=== PATIENT | female | born 1950 | race Caucasian/White ===

== ENCOUNTER → 2017-01-21 | Emergency (ER) | payer MEDICARE, OTHER ==
[2017-01-21 19:26] VITALS: BP 116/82; PULSE 64; TEMP 98.1; BMI 38.9
--- NOTE | 2017-01-21 19:49 | PDOC ---
History of Present Illness <Caren Diaz - Last Filed: 01/21/17 22:12> - History of Present Illness Initial Comments: 01/21/17 19:58 Patient is a 66-year-old female with past medical history of hypertension, hyperlipidemia who presents to the emergency department today complaining of right lower leg pain. Patient states her symptoms started approximately 2 weeks ago. She states that when she walks her leg starts to hurt and cramps up. She states that it feels warm to the touch. She saw her primary care Dr. Rendon yesterday who said that she should come to the emergency department for evaluation. Patient denies fevers, chills, shortness of breath, chest pain, palpitations, cough, nausea, vomiting and diarrhea. <Jenifer Bowen - Last Filed: 01/22/17 05:02> - General Chief Complaint: Pain Stated Complaint: LEG PAIN Time Seen by Provider: 01/21/17 19:40 Past History <Caren Diaz - Last Filed: 01/21/17 22:12> - Travel Traveled outside of the country in the last 30 days: No Close contact w/someone who was outside of country & ill: No - Past Medical History Disorders: No HTN: Yes Hypercholesterolemia: Yes Thyroid Disease: No - Surgical History Abdominal Surgery: Yes (tubal ligation) Orthopedic Surgery: Yes (RIGHT SHOULDER ARTHROSCOPY) - Immunization History Immunization Up to Date: Yes - Psycho/Social/Smoking Cessation Hx Anxiety: No Suicidal Ideation: No Smoking History: Never smoked Have you smoked in the past 12 months: No Information on smoking cessation initiated: No Hx Alcohol Use: No Drug/Substance Use Hx: No Substance Use Type: Alcohol Hx Substance Use Treatment: No <Jenifer Bowen - Last Filed: 01/22/17 05:02> - Past Medical History Allergies/Adverse Reactions: Allergies Allergy/AdvReac Type Severity Reaction Status Date / Time tetanus and diphtheria Allergy Mild Hives Verified 01/21/17 19:23 toxoids [tetanus & diphtheria toxoids] Home Medications: Ambulatory Orders Carvedilol 3.125 mg PO BID 09/14/14 Pantoprazole Sodium [Protonix] 40 mg PO DAILY 09/14/14 Atorvastatin Ca [Lipitor] 20 mg PO HS 11/13/14 Olmesartan/Hydrochlorothiazide [Benicar Hct 20-12.5 mg Tablet] 1 each PO DAILY 04/03/15 Aspirin [ASA -] 81 mg PO DAILY 11/03/15 Cyclobenzaprine HCl [Flexeril -] 10 mg PO TID PRN #15 tablet 11/03/15 Amoxicillin/Potassium Clav [Augmentin 875-125 Tablet] 1 each PO BID #14 tablet 01/21/17 *Physical Exam - Vital Signs Last Vital Signs Temp Pulse Resp BP Pulse Ox 98.1 F 64 19 116/82 98 01/21/17 19:23 01/21/17 19:23 01/21/17 19:23 01/21/17 19:23 01/21/17 19:23 <Caren Diaz - Last Filed: 01/21/17 22:12> - Vital Signs Last Vital Signs Temp Pulse Resp BP Pulse Ox 98.1 F 64 19 116/82 98 01/21/17 19:23 01/21/17 19:23 01/21/17 19:23 01/21/17 19:23 01/21/17 19:23 - Physical Exam Comments: 01/21/17 19:59 GENERAL: Well developed, well nourished. Awake and alert. No acute distress. HEENT: Normocephalic, atraumatic. PERRLA, EOMI. No conjunctival pallor. Sclera are non- icteric. Moist mucous membranes. Oropharynx is clear. NECK: Supple. Full ROM. No JVD. Carotid pulses 2+ and symmetric, without bruits. No thyromegaly. No lymphadenopathy. CARDIOVASCULAR: Regular rate and rhythm. No murmurs, rubs, or gallops. Distal pulses are 2+ and symmetric. PULMONARY: No evidence of respiratory distress. Lungs clear to auscultation bilaterally. No wheezing, rales or rhonchi. ABDOMINAL: Soft. Non-tender. Non-distended. No rebound or guarding. No organomegaly. Normoactive bowel sounds. MUSCULOSKELETAL Normal range of motion at all joints. No bony deformities or tenderness. No CVA tenderness. EXTREMITIES: No cyanosis. No clubbing. No edema. right lower medial calf tenderness. 2+ DP pulses B/L SKIN: Right lower leg with venous stasis changes. Chronic induration with hardness of the leg as well. Leg is warm to the touch. Tenderness to palpation of the right lower calf. Warm and dry. Normal capillary refill. No rashes. No jaundice. NEUROLOGICAL: Alert, awake, appropriate. Cranial nerves 2-12 intact. No deficits to light touch and temperature in face, upper extremities and lower extremities. No motor deficits in the in face, upper extremities and lower extremities. Normoreflexic in the upper and lower extremities. Normal speech. Toes are down- going bilaterally. Gait is normal without ataxia. PSYCHIATRIC: Cooperative. Good eye contact. Appropriate mood and affect. <Jenifer Bowen - Last Filed: 01/22/17 05:02> ED Treatment Course - LABORATORY CBC & Chemistry Diagram: 01/21/17 20:19 01/21/17 20:19 - ADDITIONAL ORDERS Additional order review: Laboratory Results 01/21/17 01/21/17 20:19 20:19 Sodium 140 Potassium 4.2 Chloride 104 Carbon Dioxide 30 Anion Gap 6 L BUN 26 H Creatinine 0.7 Creat Clearance w eGFR > 60 Random Glucose 103 Calcium 8.8 Phosphorus 3.4 Magnesium 2.1 Total Bilirubin 0.4 AST 16 ALT 19 Alkaline Phosphatase 87 D Total Protein 7.0 Albumin 3.4 01/21/17 20:19 RBC 4.27 MCV 89.0 MCHC 32.8 RDW 14.3 MPV 10.3 Neutrophils % 68.1 Lymphocytes % 24.3 Monocytes % 6.1 Eosinophils % 1.1 Basophils % 0.4 <Caren Diaz - Last Filed: 01/21/17 22:12> - LABORATORY CBC & Chemistry Diagram: 01/21/17 20:19 01/21/17 20:19 <Jenifer Bowen - Last Filed: 01/22/17 05:02> Medical Decision Making - Medical Decision Making 01/21/17 22:12 Dr. Rendon was paged and notified via phone service. <Caren Diaz - Last Filed: 01/21/17 22:12> - Medical Decision Making 01/21/17 20:02 Patient is a 66-year-old female past medical history of hypertension, hyperlipidemia who presents to the emergency department today complaining of 2 weeks of right lower leg pain. Diagnosis includes but not limited to DVT, cellulitis, thrombophlebitis. 1.CBC, CMP, mag, phosphorus 2.DVT study of the right lower leg 3.reevaluate. 01/22/17 20:57 Lab work shows a slightly elevated WBC at 10.6. Otherwise, unremarkable labs. Awaiting Duplex study 01/21/17 21:42 Right lower extremity venous ultrasound: Evaluate for DVT There is no sonographic evidence of deep vein thrombosis. Cutaneous varicosities are seen at the level of the calf. The greater saphenous vein appears patent. The smaller superficial veins demonstrate no definite thrombosis. We will call Dr. Rendon at this time to discuss the case. Most likely a superficial thrombophlebitis. 01/21/17 22:04 Case is discussed with Dr. Rendon. Agrees with discharge home as well as antibiotic treatment at this time. She will see the patient for follow-up. Patient is instructed to wear compression stockings and to keep her legs elevated when possible. She may use gentle heat on the area to help with circulation.Patient referred to vascular surgery. Patient understands all discharge instructions and all questions were answered at this time. <Jenifer Bowen - Last Filed: 01/22/17 05:02> *DC/Admit/Observation/Transfer <Caren Diaz - Last Filed: 01/21/17 22:12> - Discharge Dispostion Admit: No <Jenifer Bowen - Last Filed: 01/22/17 05:02> Diagnosis at time of Disposition: Superficial phlebitis and thrombophlebitis of right lower extremity - Discharge Dispostion Condition at time of disposition: Good - Prescriptions Prescriptions: Amoxicillin/Potassium Clav [Augmentin 875-125 Tablet] 1 each PO BID #14 tablet - Referrals Referrals: Destiney Rendon MD [Staff Physician] - - Patient Instructions Printed Discharge Instructions: DI for Superficial Thrombophlebitis Additional Instructions: Usted tiene inflamacin de los vasos sanguneos que estn cerca de la superficie de batista pierna. Benjamín antibiticos dados. Jaguas toda la receta incluso si se siente mejor. Alma usa medias de compresin para ayudar con el dolor. Puede cesario Motrin colby sea necesario para el dolor. Seguimiento con el mdico de atencin primaria en 1 semana, y zahrabin seguimiento con un mdico vascular. Vuelva al departamento de urgencias si tiene fiebre, escalofros, dolor en las piernas o cualquier cambio en benjamín sntomas. Print Language: SLOVAK
[2017-01-21 20:27] LABS: BASOPHIL 0.4 % (0-2.0); EOSINOPHIL 1.1 % (0-4.5); MCH 29.2 pg (25.7-33.7); MCHC 32.8 g/dl (32.0-36.0); MEAN PLT VOLUME 10.3 fl (7.5-11.1); NEUTROPHILS 68.1 % (42.8-82.8); PLATELET COUNT 215 K/MM3 (134-434); RDW 14.3 % (11.6-15.6); WHITE BLOOD COUNT 10.2 K/mm3 (4.0-10.0)
[2017-01-21 21:20] LABS: MAGNESIUM 2.1 mg/dL (1.8-2.4); PHOSPHOROUS 3.4 mg/dL (2.5-4.9)
[2017-01-21 21:21] LABS: ALBUMIN 3.4 g/dl (3.4-5.0); ANION GAP 6 (8-16); BILIRUBIN,TOTAL 0.4 mg/dL (0.2-1.0); CALCIUM 8.8 mg/dL (8.5-10.1); CO2 30 mmol/L (21-32); CREATININE 0.7 mg/dL (0.55-1.02); GLUCOSE,RANDOM 103 mg/dL (74-106); SGOT/AST 16 U/L (15-37); SGPT/ALT 19 U/L (12-78)
[2017-01-21 21:22] LABS: ALK PHOS 87 U/L (45-117)
== END | disposition home or self-care (01) ==
LOC: JER 19:11
DX: I80.01 Phlebitis and thrombophlebitis of superficial vessels of right lower extremity (principal); I10 Essential (primary) hypertension; E78.00 Pure hypercholesterolemia, unspecified
CPT/HCPCS: 36415; 80053; 83735; 84100; 85025; 93971-TC; 99282-25

== ENCOUNTER 2017-03-20 20:51 | Emergency (ER) | payer MEDICARE ==
[2017-03-20 21:19] VITALS: TEMP 97.8; BMI 39.1
[2017-03-20] MEDS ORDERED: ONDANSETRON 4 MG/2 ML VIAL IVPB ONE (21:45)
[2017-03-20] MEDS ORDERED: SODIUM CHLORIDE 0.9% 1000 ML INFUS.BAG IV ONE (21:45)
[2017-03-20] MEDS ORDERED: morphine CARPU-JECT 2 MG/1 ML DISP.SYRIN IVPUSH ONE (21:45)
--- NOTE | 2017-03-20 22:05 | PDOC ---
History of Present Illness - General Chief Complaint: Vomiting/Diarrhea Stated Complaint: FATGIUE, PAIN History Source: Patient Exam Limitations: No Limitations - History of Present Illness Initial Comments: 03/20/17 21:53 Patient is a 66-year-old female with history of hypertension, gastritis, peripheral vascular disease, BTL, knee surgery complaining off abdominal pain since about 3 PM today. States the pain started in the epigastrium about 3 PM and about 6 PM moved to the right upper quadrant pain worsened and was associated with nausea vomiting and diarrhea. Rates the pain as 7. 5/10, sharp stabbing intermittent in the right upper quadrant, with no aggravating or relieving factors. Denies fever or chills, hematochezia. PMD: Dr. Rachid Valdes PMH: As above PSocHx: neg cig, neg drug, neg etoh ALL: Tetanus and diphtheria toxoid GENERAL/CONSTITUTIONAL: [No fever or chills. No weakness. No weight change.] HEAD, EYES, EARS, NOSE AND THROAT: [No change in vision. No ear pain or discharge. No sore throat.] CARDIOVASCULAR: [No chest pain or shortness of breath.] RESPIRATORY: [No cough, wheezing, or hemoptysis.] GASTROINTESTINAL: (+) nausea, vomiting, diarrhea (-) constipation. No rectal bleeding.] GENITOURINARY: [No dysuria, frequency, or change in urination.] MUSCULOSKELETAL: [No joint or muscle swelling or pain. No neck or back pain.] SKIN AND BREASTS: [No rash or easy bruising.] NEUROLOGIC: [No headache, vertigo, loss of consciousness, or loss of sensation.] PSYCHIATRIC: [No depression or anxiety.] ENDOCRINE: [No increased thirst. No abnormal weight change.] HEMATOLOGIC/LYMPHATIC: [No anemia, easy bleeding, or history of blood clots.] ALLERGIC/IMMUNOLOGIC: [No hives or skin allergy. No latex allergy.] GENERAL: [The patient is awake, alert, and fully oriented, in mild painful distress.] HEAD: [Normal with no signs of trauma.] EYES: [Pupils equal, round and reactive to light, extraocular movements intact, sclera anicteric, conjunctiva clear.] ENT: [Ears normal, nares patent, oropharynx clear without exudates. Moist mucous membranes.] NECK: [Normal range of motion, supple without lymphadenopathy, JVD, or masses.] LUNGS: [Breath sounds equal, clear to auscultation bilaterally. No wheezes, and no crackles.] HEART: [Regular rate and rhythm, normal S1 and S2 without murmur, rub.] ABDOMEN: [Soft, (+) tenderness RUQ, normoactive bowel sounds. No guarding, no rebound. No masses.] EXTREMITIES: [Normal range of motion, no edema. No clubbing or cyanosis. No cords, erythema, or tenderness.] NEUROLOGICAL: [Cranial nerves II through XII grossly intact. Normal speech, normal gait.] PSYCH: [Normal mood, normal affect.] SKIN: [Warm, Dry, normal turgor, no rashes or lesions noted.] Past History - Past Medical History Allergies/Adverse Reactions: Allergies Allergy/AdvReac Type Severity Reaction Status Date / Time tetanus and diphtheria Allergy Mild Hives Verified 03/20/17 21:15 toxoids [tetanus & diphtheria toxoids] Home Medications: Ambulatory Orders Carvedilol 3.125 mg PO BID 09/14/14 Pantoprazole Sodium [Protonix] 40 mg PO DAILY 09/14/14 Atorvastatin Ca [Lipitor] 20 mg PO HS 11/13/14 Olmesartan/Hydrochlorothiazide [Benicar Hct 20-12.5 mg Tablet] 1 each PO DAILY 04/03/15 Aspirin [ASA -] 81 mg PO DAILY 11/03/15 Cyclobenzaprine HCl [Flexeril -] 10 mg PO TID PRN #15 tablet 11/03/15 Amoxicillin/Potassium Clav [Augmentin 875-125 Tablet] 1 each PO BID #14 tablet 01/21/17 Disorders: No HTN: Yes Hypercholesterolemia: Yes Thyroid Disease: No - Surgical History Abdominal Surgery: Yes (tubal ligation) Orthopedic Surgery: Yes (RIGHT SHOULDER ARTHROSCOPY) - Immunization History Immunization Up to Date: Yes - Psycho/Social/Smoking Cessation Hx Anxiety: No Suicidal Ideation: No Smoking History: Former smoker Have you smoked in the past 12 months: No If you are a former smoker, when did you quit?: 1989 Information on smoking cessation initiated: No Hx Alcohol Use: No Drug/Substance Use Hx: No Substance Use Type: Alcohol Hx Substance Use Treatment: No *Physical Exam - Vital Signs Last Vital Signs Temp Pulse Resp BP Pulse Ox 97.8 F 61 14 152/74 98 03/20/17 21:15 03/20/17 21:15 03/20/17 21:15 03/20/17 21:15 03/20/17 21:15 ED Treatment Course - LABORATORY CBC & Chemistry Diagram: 03/20/17 22:40 03/20/17 22:40 - RADIOLOGY Radiology Studies Ordered: Category Date Time Status ABDOMEN US -LIMITED [US] Stat Ultrasound 03/20/17 21:45 Ordered Medical Decision Making - Medical Decision Making 03/20/17 22:05 Patient is a 66-year-old female with history of hypertension, gastritis, peripheral vascular disease, BTL, knee surgery complaining off abdominal pain since about 3 PM today. DDx: gastritis, cholecystits, cholelithiasias, gastroentritis, UTI 03/20/17 23:38 Patient Name: LEA SANCHEZ THIS IS A PRELIMINARY REPORT FROM [facility] EXAM: Right upper quadrant abdominal ultrasound IMAGES: 108 EXAM DATE AND TIME: 2017-03-20 22:54:21 REASON FOR EXAM: Abdominal pain right upper quadrant COMPARISON: No FINDINGS: Normal gallbladder. No gallstones. No pericholecystic fluid. No gallbladder wall thickening. Common bile duct is normal caliber at 4.4 mm. Normal right kidney. No right hydronephrosis. No right upper quadrant free fluid. Normal liver. THIS DOCUMENT HAS BEEN ELECTRONICALLY SIGNED Johnson Jeffrey MD 03/20/2017 23:21 MARYLIN Solorzano Please call [facility] [phone] ([phone]) with questions. labs noted for elevated wbc to 15 but could be due to dehydration 03/21/17 00:37 Patient is feeling better, labs and US discussed, will get UA and results. PO challenge given 03/21/17 01:14 Patient is tolerating po will get CT scan abd/pelvis r/o ischemia in light of the wbc 03/21/17 03:37 I discussed the physical exam findings, ancillary test results and final diagnoses with the patient. I answered all of the patient's questions. The patient was satisfied with the care received and felt comfortable with the discharge plan and treatment plan. The Patient agrees to follow up with the primary care physician within 24-72 hours. *DC/Admit/Observation/Transfer Diagnosis at time of Disposition: Abdominal pain Qualifiers: Abdominal location: upper abdomen, unspecified Qualified Code(s): R10.10 - Upper abdominal pain, unspecified - Discharge Dispostion Disposition: HOME Condition at time of disposition: Stable - Referrals Referrals: Rachid Valdes MD [Staff Physician] - - Patient Instructions Printed Discharge Instructions: DI for Abdominal Pain-Adult Additional Instructions: Your Discharge Instructions: You must call primary care physician within 24 hours to arrange follow-up. Return to the Emergency Department with any new, persistent or worsening symptoms, for fever, chills, SOB, dizziness or any other concerning changes that may occur. You must follow up with her primary care about the 1 cm intermediate hypodensity falling on the right kidney.
[2017-03-20] MEDS ORDERED: morphine CARPU-JECT 2 MG/1 ML DISP.SYRIN ONE (22:17)
[2017-03-20] MEDS ORDERED: ONDANSETRON 4 MG/2 ML VIAL ONE (22:18)
[2017-03-20 22:45] LABS: BASOPHIL 0.4 % (0-2.0); EOSINOPHIL 0.5 % (0-4.5); MCH 29.9 pg (25.7-33.7); MCHC 33.3 g/dl (32.0-36.0); MEAN CELL VOLUME 89.6 fl (80-96); NEUTROPHILS 82.3 % (42.8-82.8); PLATELET COUNT 227 K/MM3 (134-434); RDW 13.7 % (11.6-15.6)
[2017-03-20 23:09] LABS: ALBUMIN 3.5 g/dl (3.4-5.0); ANION GAP 5 (8-16); BILIRUBIN,TOTAL 0.6 mg/dL (0.2-1.0); CALCIUM 8.8 mg/dL (8.5-10.1); CO2 30 mmol/L (21-32); CREATININE 0.7 mg/dL (0.55-1.02); GLUCOSE,RANDOM 108 mg/dL (74-106); SGPT/ALT 17 U/L (12-78); TOT PROT 7.1 g/dl (6.4-8.2)
[2017-03-20 23:10] LABS: ALK PHOS 91 U/L (45-117)
[2017-03-20 23:11] LABS: SGOT/AST 15 U/L (15-37)
[2017-03-21 01:15] LABS: URINE APPEARANCE CLEAR; URINE BILIRUBIN NEGATIVE (NEGATIVE); URINE BLOOD 2+ (NEGATIVE); URINE COLOR STRAW; URINE GLUCOSE (UA) NEGATIVE (NEGATIVE); URINE KETONE NEGATIVE (NEGATIVE); URINE LEUK ESTERASE NEGATIVE (NEGATIVE); URINE NITRITE NEGATIVE (NEGATIVE); URINE PROTEIN NEGATIVE (NEGATIVE); URINE UROBILINOGEN NEGATIVE mg/dL (0.2-1.0)
[2017-03-21 01:21] LABS: URINE RBC 5 /hpf (0-3); URINE WBC <1 /hpf (3-5)
[2017-03-21 03:54] VITALS: BP 146/89; PULSE 67
== END 2017-03-21 03:51 | disposition home or self-care (01) ==
LOC: JER 20:51
PROC: 3E033NZ Introduction of Analgesics, Hypnotics, Sedatives into Peripheral Vein, Percutaneous Approach (ICD-10-PCS; principal; 2017-03-20)
PROC: 3E033GC Introduction of Other Therapeutic Substance into Peripheral Vein, Percutaneous Approach (ICD-10-PCS; 2017-03-20)
DX: R10.10 Upper abdominal pain, unspecified (principal)
CPT/HCPCS: 36415; 74174-TC; 76705-TC; 80053; 81003; 81015; 83605; 83690; 85025; 96374; 96375; 99282-25

== ENCOUNTER 2018-03-26 10:52 | Emergency (ER) | payer MEDICARE ==
[2018-03-26 11:10] VITALS: BP 122/76; PULSE 66; TEMP 98.3; BMI 42.5
[2018-03-26] MEDS ORDERED: KETOROLAC TROMETHAMINE 30 MG/1 ML VIAL IM ONE (11:44)
[2018-03-26] MEDS ORDERED: traMADol HCL 50 MG TABLET PO ONE (11:45)
[2018-03-26] MEDS ORDERED: KETOROLAC TROMETHAMINE 30 MG/1 ML VIAL ONE (11:49)
[2018-03-26] MEDS ORDERED: traMADol HCL 50 MG TABLET ONE (11:49)
--- NOTE | 2018-03-26 11:52 | PDOC ---
History of Present Illness - General Chief Complaint: Back Pain Stated Complaint: BACK PAIN Time Seen by Provider: 03/26/18 11:17 History Source: Patient - History of Present Illness Occurred: reports: other Severity: reports: severe Pain Location: reports: back Past History - Past Medical History Allergies/Adverse Reactions: Allergies Allergy/AdvReac Type Severity Reaction Status Date / Time tetanus and diphtheria Allergy Mild Hives Verified 03/26/18 11:10 toxoids [tetanus & diphtheria toxoids] Home Medications: Ambulatory Orders Carvedilol 3.125 mg PO BID 09/14/14 Pantoprazole Sodium [Protonix] 40 mg PO DAILY 09/14/14 Atorvastatin Ca [Lipitor] 20 mg PO HS 11/13/14 Olmesartan/Hydrochlorothiazide [Benicar Hct 20-12.5 mg Tablet] 1 each PO DAILY 04/03/15 Aspirin [ASA -] 81 mg PO DAILY 11/03/15 Cyclobenzaprine HCl [Flexeril -] 10 mg PO TID PRN #15 tablet 11/03/15 Amoxicillin/Potassium Clav [Augmentin 875-125 Tablet] 1 each PO BID #14 tablet 01/21/17 Cyclobenzaprine HCl [Flexeril 10 mg] 10 mg PO TID PRN #9 tablet 03/26/18 Naproxen 500 mg PO BID #20 tablet 03/26/18 COPD: No Disorders: No HTN: Yes Hypercholesterolemia: Yes Thyroid Disease: No - Surgical History Abdominal Surgery: Yes (tubal ligation) Orthopedic Surgery: Yes (RIGHT SHOULDER ARTHROSCOPY) - Immunization History Immunization Up to Date: Yes - Suicide/Smoking/Psychosocial Hx Smoking History: Never smoked Have you smoked in the past 12 months: No If you are a former smoker, when did you quit?: 1989 Information on smoking cessation initiated: No Hx Alcohol Use: No Drug/Substance Use Hx: No Substance Use Type: Alcohol Hx Substance Use Treatment: No Review of Systems - Review of Systems Constitutional: No: Chills, Fever, Unexplained wgt Loss ABD/GI: No: Nausea, Vomiting, Abdominal cramping : No: Burning, Dysuria, Flank Pain, Hematuria Musculoskeletal: Yes: Back Pain Neurological: No: Numbness, Tingling, Weakness *Physical Exam - Vital Signs Last Vital Signs Temp Pulse Resp BP Pulse Ox 98.3 F 66 18 122/76 99 03/26/18 11:07 03/26/18 11:07 03/26/18 11:07 03/26/18 11:07 03/26/18 11:07 - Physical Exam General Appearance: Yes: Appropriately Dressed, Mild Distress HEENT: positive: Normal Voice Neck: positive: Supple Respiratory/Chest: negative: Respiratory Distress Gastrointestinal/Abdominal: positive: Normal Bowel Sounds, Soft. negative: Tender, Pulsatile Mass Musculoskeletal: positive: Other (pain to LS with movement in ED). negative: CVA Tenderness, Vertebral Tenderness Integumentary: positive: Dry, Warm Neurologic: positive: Fully Oriented, Alert, Normal Mood/Affect Medical Decision Making - Medical Decision Making 03/26/18 11:45 67-year-old female, denies any past medical history, here with worsening lower back pain. Patient states 2 months ago she developed non-radiating, mid lower back pain, intermittent, worsens with movement, was initially being relieved w/ tylenol and cold pack. States pain returned yesterday and no relief with meds now. No recent trauma. Denies extremity weakness, saddle anesthesia, bowel or bladder incontinence. No symptoms, nausea, vomiting, fever or chills. No history of kidney stone. States she has not yet been evaluated by her PMD See exam LBP No trauma No infectious or neuro sxs Possibly MSK, i.e strain, spasm, arthitis etc -pain control in ED and reassess 03/26/18 12:08 Pt reports pain getting better w/ meds. Will dc w/ pain control and PMD f/u next week *DC/Admit/Observation/Transfer Diagnosis at time of Disposition: Low back pain Qualifiers: Chronicity: acute Back pain laterality: unspecified Sciatica presence: without sciatica Qualified Code(s): M54.5 - Low back pain - Discharge Dispostion Disposition: HOME Condition at time of disposition: Improved - Prescriptions Prescriptions: Cyclobenzaprine HCl [Flexeril 10 mg] 10 mg PO TID PRN #9 tablet PRN Reason: Back Pain Naproxen 500 mg PO BID #20 tablet - Referrals Referrals: Rachid Valdes MD [Primary Care Provider] - - Patient Instructions Printed Discharge Instructions: Low Back Pain Additional Instructions: Take Medication as prescribed for pain and follow-up with your doctor next week for further evaluation - Post Discharge Activity
== END 2018-03-26 12:15 | disposition home or self-care (01) ==
LOC: JERFT 10:52
PROC: 3E0233Z Introduction of Anti-inflammatory into Muscle, Percutaneous Approach (ICD-10-PCS; principal; 2018-03-26)
DX: M54.5 Low back pain (principal); I10 Essential (primary) hypertension; E78.00 Pure hypercholesterolemia, unspecified; Z88.7 Allergy status to serum and vaccine
CPT/HCPCS: 96372; 99281-25

== ENCOUNTER 2018-04-13 06:43 | Emergency (ER) | payer MEDICARE ==
[2018-04-13 07:28] VITALS: BP 146/84; PULSE 64; TEMP 98.3; BMI 37.2
[2018-04-13] MEDS ORDERED: diazePAM 5 MG TABLET PO ONE (08:30)
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
[2018-04-13] MEDS ORDERED: KETOROLAC TROMETHAMINE 60 MG/2 ML VIAL IM ONE (08:31)
[2018-04-13] MEDS ORDERED: diazePAM 5 MG TABLET ONE (08:32)
[2018-04-13] MEDS ORDERED: KETOROLAC TROMETHAMINE 30 MG/1 ML VIAL IM ONE (08:38)
[2018-04-13] MEDS ORDERED: KETOROLAC TROMETHAMINE 30 MG/1 ML VIAL ONE (08:45)
--- NOTE | 2018-04-13 09:41 | PDOC ---
Attending Attestation - Resident Resident Name: NikkiJohn - ED Attending Attestation I have performed the following: I have examined & evaluated the patient, The case was reviewed & discussed with the resident, I agree w/resident's findings & plan, Exceptions are as noted - HPI HPI: 04/13/18 09:39 Although they've 59-year-old female history of hypertension hyperlipidemia here today complaining of low back pain. Patient states she has had back pain for 10 days worse with movement bending radiating down to her right leg denies any new numbness or weakness or tingling she does have a history of prior right lower extremity DVT for which she is on aspirin. No urinary complaints such as urgency frequency or dysuria no fevers no chills no bowel or bladder incontinence patient states she saw her primary 10 days ago who started her naproxen which she has been taking intermittently with minimal relief no trauma no fever no chills - Physicial Exam PE: 04/13/18 09:39 Awake alert no distress lungs are clear bilaterally heart is regular without any murmurs rubs or gallops abdomen is soft nontender nondistended extremities are warm and well-perfused. The right lower extremity is noted for some mild edema and discoloration noted varicosities. Strength is 5 out of 5 on bilateral lower extremities with hip flexion, extension, knee flexion, extension, dorsiflexion, plantar flexion, sensation is intact throughout bilateral lower extremities back exam reveals right paraspinal muscle spasm and pain there is no midline spinal tenderness neuro alert oriented 3 sensation is intact throughout - Medical Decision Making 04/13/18 09:41 Differential diagnosis includes musculoskeletal back strain, no midline tenderness no neurological compromise on exam. We will obtain a UA to rule out any associated UTI or renal pathology. Plan muscle relaxers and anti- inflammatories will discuss with the patient's primary doctor alexandria in addition we will obtain a right lower extremity ultrasound to reassess the patient's history of previous DVT as there is notable swelling present she is not anticoagulated
[2018-04-13 11:51] LABS: URINE APPEARANCE SLCLOUDY; URINE BILIRUBIN NEGATIVE (<2.0 mg/dL); URINE COLOR YELLOW; URINE GLUCOSE (UA) NEGATIVE (NEGATIVE); URINE KETONE NEGATIVE (NEGATIVE); URINE LEUK ESTERASE NEGATIVE (NEGATIVE); URINE NITRITE NEGATIVE (NEGATIVE); URINE PROTEIN NEGATIVE (NEGATIVE); URINE UROBILINOGEN NEGATIVE mg/dL (0.2-1.0)
[2018-04-13 12:09] LABS: EPI CELLS MODERATE /HPF (FEW); URINE MUCUS RARE
--- NOTE | 2018-04-13 12:14 | PDOC ---
History of Present Illness - General Chief Complaint: Back Pain Stated Complaint: BACK PAIN Past History - Past Medical History Allergies/Adverse Reactions: Allergies Allergy/AdvReac Type Severity Reaction Status Date / Time tetanus and diphtheria Allergy Mild Hives Verified 04/13/18 07:22 toxoids [tetanus & diphtheria toxoids] Home Medications: Ambulatory Orders Carvedilol 3.125 mg PO BID 09/14/14 Pantoprazole Sodium [Protonix] 40 mg PO DAILY 09/14/14 Atorvastatin Ca [Lipitor] 20 mg PO HS 11/13/14 Olmesartan/Hydrochlorothiazide [Benicar Hct 20-12.5 mg Tablet] 1 each PO DAILY 04/03/15 Aspirin [ASA -] 81 mg PO DAILY 11/03/15 Cyclobenzaprine HCl [Flexeril -] 10 mg PO TID PRN #15 tablet 11/03/15 Naproxen 500 mg PO BID #20 tablet 03/26/18 Diazepam [Valium] 2 mg PO TID PRN #15 tablet MDD 3 04/13/18 Ibuprofen [Motrin -] 400 mg PO TID PRN #90 tablet 04/13/18 COPD: No Disorders: No HTN: Yes Hypercholesterolemia: Yes Thyroid Disease: No - Surgical History Abdominal Surgery: Yes (tubal ligation) Orthopedic Surgery: Yes (RIGHT SHOULDER ARTHROSCOPY) - Immunization History Immunization Up to Date: Yes - Suicide/Smoking/Psychosocial Hx Smoking History: Never smoked Have you smoked in the past 12 months: No If you are a former smoker, when did you quit?: 1989 Hx Alcohol Use: No Drug/Substance Use Hx: No Substance Use Type: Alcohol Hx Substance Use Treatment: No *Physical Exam - Vital Signs Last Vital Signs Temp Pulse Resp BP Pulse Ox 98.3 F 64 18 146/84 99 04/13/18 07:05 04/13/18 07:05 04/13/18 07:05 04/13/18 07:05 04/13/18 07:05 ED Treatment Course - ADDITIONAL ORDERS Additional order review: Laboratory Results 04/13/18 11:30 Urine Color Yellow Urine Appearance Slcloudy Urine pH 5.0 D Ur Specific [place] 1.017 Urine Protein Negative Urine Glucose (UA) Negative Urine Ketones Negative Urine Blood 2+ H Urine Nitrite Negative Urine Bilirubin Negative Urine Urobilinogen Negative Ur Leukocyte Esterase Negative - RADIOLOGY Radiology Studies Ordered: Category Date Time Status DUPLEX VASCUL US-1 LEG [US] Stat Ultrasound 04/13/18 08:39 Completed - Medications Given in the ED: ED Medications Discontinued Medications Generic Name Dose Route Start Last Admin Trade Name Stevie PRN Reason Stop Dose Admin Diazepam 5 mg 04/13/18 08:30 04/13/18 08:38 Valium - PO 04/13/18 08:31 5 mg ONCE ONE Administration Ketorolac Tromethamine 60 mg 04/13/18 08:31 04/13/18 08:41 Toradol Injection - IM 04/13/18 08:32 Not Given ONCE ONE Ketorolac Tromethamine 30 mg 04/13/18 08:38 04/13/18 08:54 Toradol Injection - IM 04/13/18 08:39 30 mg ONCE ONE Administration *DC/Admit/Observation/Transfer Diagnosis at time of Disposition: Low back pain Qualifiers: Chronicity: chronic Back pain laterality: right Sciatica presence: without sciatica Qualified Code(s): M54.5 - Low back pain; G89.29 - Other chronic pain - Discharge Dispostion Disposition: HOME Condition at time of disposition: Good Decision to Admit order: No - Prescriptions Prescriptions: Diazepam [Valium] 2 mg PO TID PRN #15 tablet MDD 3 PRN Reason: Pain Ibuprofen [Motrin -] 400 mg PO TID PRN #90 tablet PRN Reason: Pain - Referrals Referrals: Kevan Schuler MD., MD [Staff Physician] - Destiney Rendon MD [Staff Physician] - Rachid Ibrahim MD [Primary Care Provider] - - Patient Instructions Printed Discharge Instructions: Low Back Pain, Blood in Urine Additional Instructions: you should follow up with a urologist as you have blood in your urine. call dr Schuler to schedule. see referral information and call to schedule. you should follow up with Dr Rendon tomorrow ( she is covering for dr. ibrahim. ) you can take valium 2 mg ever 8 hrs as needed for muscle spasm. take motrin 400 mg every 8 hrs as needed for pain. return for any weakness, numbness or any concerns. - Post Discharge Activity
== END 2018-04-13 12:39 | disposition home or self-care (01) ==
LOC: JER 06:43
PROC: 3E0233Z Introduction of Anti-inflammatory into Muscle, Percutaneous Approach (ICD-10-PCS; principal; 2018-04-13)
DX: M54.5 Low back pain (principal); G89.29 Other chronic pain
CPT/HCPCS: 81003; 81015; 93971-TC; 99282-25

== ENCOUNTER 2018-04-17 08:46 | Emergency (ER) | payer MEDICARE ==
[2018-04-17 09:07] VITALS: BP 124/80; PULSE 70; TEMP 98.7; BMI 39.6
[2018-04-17] MEDS ORDERED: predniSONE 20 MG TABLET (UD) PO ONE (09:21)
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
[2018-04-17] MEDS ORDERED: KETOROLAC TROMETHAMINE 60 MG/2 ML VIAL IM ONE (09:22)
[2018-04-17] MEDS ORDERED: predniSONE 20 MG TABLET (UD) ONE (09:25)
[2018-04-17] MEDS ORDERED: KETOROLAC TROMETHAMINE 60 MG/2 ML VIAL ONE (09:25)
== END 2018-04-17 10:38 | disposition home or self-care (01) ==
LOC: JERFT 08:46
PROC: 3E0233Z Introduction of Anti-inflammatory into Muscle, Percutaneous Approach (ICD-10-PCS; principal; 2018-04-17)
DX: M54.89 Other dorsalgia (principal); G89.29 Other chronic pain; V48.4XXD Person boarding or alighting a car injured in noncollision transport accident, subsequent encounter; I10 Essential (primary) hypertension; E78.00 Pure hypercholesterolemia, unspecified; Z88.7 Allergy status to serum and vaccine
CPT/HCPCS: 72100-TC-FY; 96372; 99281-25

== ENCOUNTER 2019-01-05 14:04 | Emergency (ER) | payer OTHER ==
[2019-01-05 14:22] VITALS: BP 117/77; PULSE 87; TEMP 98; BMI 38.9
[2019-01-05] MEDS ORDERED: ACETAMINOPHEN 325 MG TABLET (FP) PO ONE (14:26)
[2019-01-05] MEDS ORDERED: ALPRAZolam 0.25 MG TABLET PO ONE (14:26)
[2019-01-05] MEDS ORDERED: ACETAMINOPHEN 325 MG TABLET (FP) ONE (14:27)
[2019-01-05] MEDS ORDERED: ALPRAZolam 0.25 MG TABLET ONE (14:27)
[2019-01-05 14:47] LABS: EOS % 0.9 % (0-4.5); HEMATOCRIT 36.9 % (32.4-45.2); HEMOGLOBIN 12.6 GM/dL (10.7-15.3); LYMPH % 23.1 % (8-40); MCH 29.7 pg (25.7-33.7); MEAN CELL VOLUME 87.4 fl (80-96); MEAN PLT VOLUME 9.6 fl (7.5-11.1); MONO % 5.3 % (3.8-10.2); NEUT % 69.7 % (42.8-82.8); PLATELET COUNT 325 K/MM3 (134-434); RBC 4.22 M/mm3 (3.60-5.2); RDW 13.2 % (11.6-15.6); WHITE BLOOD COUNT 10.8 K/mm3 (4.0-10.0)
[2019-01-05 15:10] LABS: ALBUMIN 3.4 g/dl (3.4-5.0); ALK PHOS 118 U/L (45-117); ANION GAP 9 MMOL/L (8-16); BILIRUBIN,TOTAL 0.4 mg/dL (0.2-1); CALCIUM 8.7 mg/dL (8.5-10.1); CHLORIDE 107 mmol/L (98-107); CO2 25 mmol/L (21-32); CREATININE 0.9 mg/dL (0.55-1.3); GLUCOSE,RANDOM 145 mg/dL (74-106); POTASSIUM 3.3 mmol/L (3.5-5.1); SGOT/AST 15 U/L (15-37); SGPT/ALT 18 U/L (13-61); SODIUM 142 mmol/L (136-145); TOT PROT 7.2 g/dl (6.4-8.2)
--- NOTE | 2019-01-05 15:11 | PDOC ---
Documentation entered by Marion Lebron SCRIBE, acting as scribe for Pat Poe MD. Pat Poe MD: This documentation has been prepared by the Vi hernandez Sammi, SCRIBE, under my direction and personally reviewed by me in its entirety. I confirm that the documentation accurately reflects all work, treatment, procedures, and medical decision making performed by me. History of Present Illness - General Chief Complaint: Headache Stated Complaint: Shortness of Breath - History of Present Illness Initial Comments: 01/05/19 15:02 The patient is a 68 year old female, with a significant PMH of HTN, who presents to the emergency department for evaluation of 1 day of a headache. As per daughter at bedside, the patient was informed around 1:15 today that her son had after suffering from a stroke on Tuesday. She reports the patient fell to her knees and started crying. The patient complains of a mild diffuse headache. She denies any other complaints at this time. Allergies: PCP: Rachid Valdes Past History - Past Medical History Allergies/Adverse Reactions: Allergies Allergy/AdvReac Type Severity Reaction Status Date / Time tetanus and diphtheria Allergy Mild Hives Verified 04/17/18 09:01 toxoids [tetanus & diphtheria toxoids] Home Medications: Ambulatory Orders Pantoprazole Sodium [Protonix] 40 mg PO DAILY 09/14/14 Atorvastatin Ca [Lipitor] 40 mg PO HS 11/13/14 Olmesartan/Hydrochlorothiazide [Benicar Hct 20-12.5 mg Tablet] 1 each PO DAILY 04/03/15 Aspirin [ASA -] 81 mg PO DAILY 11/03/15 Celecoxib [Celebrex] 200 mg PO BID 01/05/19 Gabapentin [Neurontin] 100 mg PO TID 01/05/19 COPD: No Disorders: No HTN: Yes Hypercholesterolemia: Yes Thyroid Disease: No - Surgical History Abdominal Surgery: Yes (tubal ligation) Orthopedic Surgery: Yes (RIGHT SHOULDER ARTHROSCOPY) - Immunization History Immunization Up to Date: Yes - Suicide/Smoking/Psychosocial Hx Smoking History: Never smoked Have you smoked in the past 12 months: No If you are a former smoker, when did you quit?: 1989 Hx Alcohol Use: No Drug/Substance Use Hx: No Substance Use Type: Alcohol Hx Substance Use Treatment: No Review of Systems - Review of Systems Comments:: 01/05/19 15:02 GENERAL/CONSTITUTIONAL: No fever or chills. No weakness. HEAD, EYES, EARS, NOSE AND THROAT: (+)Headache. No change in vision. No ear pain or discharge. No sore throat. CARDIOVASCULAR: No chest pain or shortness of breath. RESPIRATORY: No cough, wheezing, or hemoptysis. GASTROINTESTINAL: No nausea, vomiting, diarrhea or constipation. GENITOURINARY: No dysuria, frequency, or change in urination. MUSCULOSKELETAL: No joint or muscle swelling or pain. No neck or back pain. NEUROLOGIC: No vertigo, loss of consciousness, or change in strength/sensation. *Physical Exam - Vital Signs Last Vital Signs Temp Pulse Resp BP Pulse Ox 98.0 F 87 18 117/77 100 01/05/19 14:20 01/05/19 14:20 01/05/19 14:20 01/05/19 14:20 01/05/19 14:20 - Physical Exam Comments: 01/05/19 15:02 GENERAL: crying, tearfull EYES: PERRLA, EOMI, sclera anicteric, conjunctiva clear. ENT: Ears normal, nares patent, oropharynx clear without exudates. Moist mucous membranes. NECK: Normal range of motion, supple without lymphadenopathy, JVD, or masses. LUNGS: Breath sounds equal, clear to auscultation bilaterally. No wheezes, and no crackles. HEART:Regular rate and rhythm, normal S1 and S2 without murmur, rub or gallop. ABDOMEN: Soft, nontender, normoactive bowel sounds. No guarding, no rebound. No masses palpable. NEUROLOGICAL: Cranial nerves II through XII grossly intact. Normal speech. No focal neurological deficits. SKIN: Warm, Dry, normal turgor, no rashes or lesions noted. ED Treatment Course - LABORATORY CBC & Chemistry Diagram: 01/05/19 14:31 01/05/19 14:31 Medical Decision Making - Medical Decision Making 01/05/19 14:27 EKG - NSR rate of 83 bpm, axis nml, intervals nml, no st elevation or depression , t waves upright 01/05/19 14:35 Ms Dajuan Land is a 68 yo F who presents with family Patient's first son is currently in [place] and apparently had a Stroke on Tuesday (2 days ago) Pt's son apparently today The patient was told and collapsed to the ground crying and screaming Pt denies chest pain Pt reports headache - bitemporal, pounding Pt denies chest pain Pt denies shortness of breath On examination, Pt is awake and alert, Crying RRR CTA No abd tenderness DD: Grief response, tension headache Will do: Labs EKG Tylenol and Xanax Re Assess 01/05/19 15:01 Laboratory Tests 01/05/19 14:31 WBC 10.8 H Hgb 12.6 Hct 36.9 Plt Count 325 D 01/05/19 15:10 01/05/19 15:25 Pt states she feels much better Headache has resolved Pt would like to go home Clinical Impression: grief response, initial presentation *DC/Admit/Observation/Transfer Diagnosis at time of Disposition: Grief reaction Headache Qualifiers: Headache type: unspecified Headache chronicity pattern: acute headache Intractability: not intractable Qualified Code(s): R51 - Headache - Discharge Dispostion Disposition: HOME Condition at time of disposition: Stable Decision to Admit order: No - Referrals Referrals: Rachid Valdes MD [Primary Care Provider] - - Patient Instructions Printed Discharge Instructions: DI for Headache, Unique Concerns When Grieving for a Sudden Loss Additional Instructions: Thank you for coming in to the ER today My deepest sympathies about what has happened today Please stay hydrated, please take tylenol as needed for pain Please feel free to return to the ER for any concerns or complaints - headache, chest pain, shortness of breath, palpitations, etc - Post Discharge Activity
--- NOTE | 2019-01-06 14:39 | EKG ---
Test Reason : Blood Pressure : / mmHG Vent. Rate : 083 BPM Atrial Rate : 083 BPM P-R Int : 168 ms QRS Dur : 088 ms QT Int : 382 ms P-R-T Axes : 038 -04 019 degrees QTc Int : 448 ms NORMAL SINUS RHYTHM MODERATE VOLTAGE CRITERIA FOR LVH, MAY BE NORMAL VARIANT BORDERLINE ECG WHEN COMPARED WITH ECG OF 01-DEC-2014 18:28, NO SIGNIFICANT CHANGE WAS FOUND Confirmed by MD CARIDAD, BETHANY ([id number]) on 01/06/2019 2:38:59 PM Referred By: Confirmed By:BETHANY MCLEAN MD
== END 2019-01-05 15:46 | disposition home or self-care (01) ==
LOC: JER 14:04
DX: R51 Headache (principal); F43.29 Adjustment disorder with other symptoms; Z63.4 Disappearance and death of family member; I10 Essential (primary) hypertension
CPT/HCPCS: 36415; 80053; 82550; 84484; 85025; 93005; 93010; 99282-25

== ENCOUNTER 2019-06-13 18:57 | Emergency (ER) | payer OTHER ==
[2019-06-13 19:10] VITALS: BP 132/78; PULSE 68; TEMP 97.9; BMI 40.8
--- NOTE | 2019-06-13 19:10 | PDOC ---
Rapid Medical Evaluation Time Seen by Provider: 06/13/19 19:04 Medical Evaluation: Allergies Allergy/AdvReac Type Severity Reaction Status Date / Time tetanus and diphtheria Allergy Mild Hives Verified 04/17/18 09:01 toxoids [tetanus & diphtheria toxoids] 06/13/19 19:04 I have performed a brief in-person evaluation of this patient. The patient presents with a chief complaint of: h/o varicose veins s/p ?vein striping to R leg 2 months ago, chronic itching to RLE, here w/ pain to posterior R leg/knee x 2 days. No CP, SOB or palpitations. No f/c. No recent trauma. H/o HTN Pertinent physical exam findings:varicosities w/ hyperpigmentation to RLE I have ordered the following:US The patient will proceed to the ED for further evaluation. Discharge Disposition - Diagnosis Leg pain Qualifiers: Laterality: right Qualified Code(s): M79.604 - Pain in right leg - Referrals - Patient Instructions - Post Discharge Activity
--- NOTE | 2019-06-13 20:18 | PDOC ---
History of Present Illness - General Chief Complaint: Pain Stated Complaint: PAIN Time Seen by Provider: 06/13/19 19:04 - History of Present Illness Initial Comments: 06/13/19 20:13 68-year-old female with a past medical history of GERD and hypertension presents for evaluation of atraumatic right knee pain x2 days without systemic symptoms Past History - Past Medical History Allergies/Adverse Reactions: Allergies Allergy/AdvReac Type Severity Reaction Status Date / Time tetanus and diphtheria Allergy Mild Hives Verified 06/13/19 19:10 toxoids [tetanus & diphtheria toxoids] Home Medications: Ambulatory Orders Pantoprazole Sodium [Protonix] 40 mg PO DAILY 09/14/14 Atorvastatin Ca [Lipitor] 40 mg PO HS 11/13/14 Olmesartan/Hydrochlorothiazide [Benicar Hct 20-12.5 mg Tablet] 1 each PO DAILY 04/03/15 Aspirin [ASA -] 81 mg PO DAILY 11/03/15 Celecoxib [Celebrex] 200 mg PO BID 01/05/19 Gabapentin [Neurontin] 100 mg PO TID 01/05/19 COPD: No Disorders: No HTN: Yes Hypercholesterolemia: Yes Thyroid Disease: No - Surgical History Abdominal Surgery: Yes (tubal ligation) Orthopedic Surgery: Yes (RIGHT SHOULDER ARTHROSCOPY) - Immunization History Immunization Up to Date: Yes - Psycho Social/Smoking Cessation Hx Smoking History: Never smoked Have you smoked in the past 12 months: No If you are a former smoker, when did you quit?: 1989 Information on smoking cessation initiated: No Hx Alcohol Use: No Drug/Substance Use Hx: No Substance Use Type: Alcohol Hx Substance Use Treatment: No Review of Systems - Review of Systems Musculoskeletal: Yes: Joint Pain *Physical Exam - Vital Signs Last Vital Signs Temp Pulse Resp BP Pulse Ox 97.9 F 68 20 132/78 97 06/13/19 18:59 06/13/19 18:59 06/13/19 18:59 06/13/19 18:59 06/13/19 18:59 - Physical Exam 06/13/19 20:13 Right knee tenderness about the popliteal fossa thigh and calf are soft and nontender no gross sensorimotor deficits neurovascular intact. Medical Decision Making - Medical Decision Making 06/13/19 20:17 Popliteal cyst Lema's cyst most likely associated with osteoarthritis follow- up with orthopedics Discharge - Discharge Information Problems reviewed: Yes Clinical Impression/Diagnosis: Bakers cyst Leg pain Qualifiers: Laterality: right Qualified Code(s): M79.604 - Pain in right leg Condition: Stable Disposition: HOME - Admission No - Follow up/Referral Referrals: Rachid Valdes MD [Primary Care Provider] - Matthew Boone DO [Staff Physician] - - Patient Discharge Instructions Additional Instructions: Follow-up with orthopedic surgery in 2 to 3 days for further evaluation and treatment options and return to the emergency room should symptoms worsen. - Post Discharge Activity
== END 2019-06-13 20:27 | disposition home or self-care (01) ==
LOC: JERFT 18:57
DX: M79.604 Pain in right leg (principal); Z88.8 Allergy status to other drugs, medicaments and biological substances; Z87.891 Personal history of nicotine dependence; E78.00 Pure hypercholesterolemia, unspecified; I10 Essential (primary) hypertension
CPT/HCPCS: 93971-TC; 99282-25

== ENCOUNTER 2020-05-27 08:28 | Inpatient (IN) | payer OTHER ==
[2020-05-27] MEDS ORDERED: MAG HYDROX/AL HYDROX/SIMETH 30 ML UNIT-DOSE CUP PO ONE (09:02)
[2020-05-27] MEDS ORDERED: FAMOTIDINE 20 MG/50 ML IVPB 20 MG/50 ML MG IVPB ONE ×2 (09:02→09:58)
[2020-05-27 09:40] LABS: BASO % 0.7 % (0-2.0); EOS % 0.5 % (0-4.5); HEMATOCRIT 39.1 % (32.4-45.2); HEMOGLOBIN 13.3 GM/dL (10.7-15.3); LYMPH % 20.2 % (8-40); MCH 30.1 pg (25.7-33.7); MCHC 34.1 g/dl (32.0-36.0); MEAN CELL VOLUME 88.3 fl (80-96); MEAN PLT VOLUME 10.4 fl (7.5-11.1); MONO % 6.5 % (3.8-10.2); NEUT % 72.1 % (42.8-82.8); PLATELET COUNT 267 K/MM3 (134-434); RBC 4.43 M/mm3 (3.60-5.2); RDW 14.1 % (11.6-15.6); WHITE BLOOD COUNT 9.4 K/mm3 (4.0-10.0)
[2020-05-27] MEDS ORDERED: MAG HYDROX/AL HYDROX/SIMETH 30 ML UNIT-DOSE CUP ONE (09:58)
[2020-05-27 10:00] LABS: EPI CELLS 6 /uL (0-25.1); HYALINE CASTS 0 /uL (0-3.1); PH,URINE 7.5 (5.0-8.0); URINE APPEARANCE CLEAR; URINE BACTERIA 161 /uL (0-1359); URINE BILIRUBIN NEGATIVE (NEGATIVE); URINE COLOR YELLOW; URINE GLUCOSE (UA) NEGATIVE (NEGATIVE); URINE KETONE NEGATIVE (NEGATIVE); URINE LEUK ESTERASE NEGATIVE (NEGATIVE); URINE NITRITE NEGATIVE (NEGATIVE); URINE PROTEIN NEGATIVE (NEGATIVE); URINE RBC 8 /uL (0-23.9); URINE UROBILINOGEN 0.2 mg/dL (0.2-1.0); URINE WBC 3 /uL (0-25.8)
[2020-05-27 10:02] LABS: CHLORIDE 106 mmol/L (98-107); SODIUM 140 mmol/L (136-145)
[2020-05-27 10:04] LABS: CALCIUM 8.8 mg/dL (8.5-10.1)
[2020-05-27 10:05] LABS: ALBUMIN 3.4 g/dl (3.4-5.0); ANION GAP 6 MMOL/L (8-16); BLOOD UREA NITROGEN 18.2 mg/dL (7-18); CO2 28 mmol/L (21-32); GLUCOSE,RANDOM 110 mg/dL (74-106); LIPASE 92 U/L (73-393)
[2020-05-27 10:08] LABS: CREATININE 0.7 mg/dL (0.55-1.3); SGOT/AST 27 U/L (15-37); SGPT/ALT 21 U/L (13-61)
[2020-05-27 10:09] LABS: BILIRUBIN,TOTAL 0.8 mg/dL (0.2-1)
[2020-05-27 10:10] LABS: TOT PROT 7.1 g/dl (6.4-8.2)
[2020-05-27 10:11] LABS: ALK PHOS 103 U/L (45-117)
[2020-05-27] MEDS ORDERED: ASPIRIN 81 MG CHEWABLE TABLETS PO ONE (11:13)
[2020-05-27 11:23] LABS: INR 1.06 (0.83-1.09); PROTHROMBIN TIME (PATIENT) 12.8 SEC (9.7-13.0)
[2020-05-27 11:26] LABS: ACTIVATED PTT 31.9 SECONDS (25.2-36.5)
[2020-05-27] MEDS ORDERED: ASPIRIN 81 MG CHEWABLE TABLETS ONE (12:35)
[2020-05-27] MEDS ORDERED: ACETAMINOPHEN 325 MG TABLET (FP) PO PRN (17:21)
[2020-05-27] MEDS ORDERED: ACETAMINOPHEN 325 MG TABLET (FP) ONE (23:18)
[2020-05-27] MEDS ORDERED: GABAPENTIN 100 MG CAPSULE ONE (23:19)
[2020-05-27] MEDS: GABAPENTIN 100 MG CAPSULE PO SCH (23:21)
[2020-05-28 00:57] LABS: CHLORIDE 106 mmol/L (98-107); POTASSIUM 3.5 mmol/L (3.5-5.1); SODIUM 142 mmol/L (136-145)
[2020-05-28 00:59] LABS: CALCIUM 8.6 mg/dL (8.5-10.1)
[2020-05-28 01:00] LABS: ANION GAP 7 MMOL/L (8-16); BLOOD UREA NITROGEN 21.8 mg/dL (7-18); CO2 29 mmol/L (21-32); GLUCOSE,RANDOM 112 mg/dL (74-106)
[2020-05-28 01:03] LABS: CREATININE 0.9 mg/dL (0.55-1.3); SGOT/AST 11 U/L (15-37); SGPT/ALT 17 U/L (13-61)
[2020-05-28 01:05] LABS: BILIRUBIN,TOTAL 0.5 mg/dL (0.2-1); TOT PROT 6.3 g/dl (6.4-8.2)
[2020-05-28 01:06] LABS: ALK PHOS 95 U/L (45-117)
[2020-05-28 07:01] LABS: BASO % 0.6 % (0-2.0); EOS % 1.2 % (0-4.5); HEMATOCRIT 37.4 % (32.4-45.2); HEMOGLOBIN 12.4 GM/dL (10.7-15.3); LYMPH % 29.9 % (8-40); MCH 29.2 pg (25.7-33.7); MCHC 33.2 g/dl (32.0-36.0); MEAN PLT VOLUME 10.2 fl (7.5-11.1); MONO % 6.8 % (3.8-10.2); NEUT % 61.5 % (42.8-82.8); PLATELET COUNT 235 K/MM3 (134-434); RBC 4.25 M/mm3 (3.60-5.2); RDW 13.9 % (11.6-15.6); WHITE BLOOD COUNT 7.9 K/mm3 (4.0-10.0)
[2020-05-28] MEDS ORDERED: PANTOPRAZOLE 20 MG TABLET PO ONE (08:59)
[2020-05-28] MEDS ORDERED: LOSARTAN POTASSIUM 50 MG TABLET ONE (08:59)
[2020-05-28] MEDS ORDERED: GABAPENTIN 100 MG CAPSULE ONE (09:00)
[2020-05-28] MEDS: PANTOPRAZOLE 40 MG TABLET PO SCH (09:56)
[2020-05-28] MEDS: GABAPENTIN 100 MG CAPSULE PO SCH ×2 (09:56→21:27)
[2020-05-28] MEDS: LOSARTAN POTASSIUM 50 MG TABLET PO SCH (09:57)
[2020-05-29 06:19] VITALS: BMI 38.3
[2020-05-29] MEDS: ASPIRIN 81 MG CHEWABLE TABLETS PO SCH (10:38)
[2020-05-29] MEDS: GABAPENTIN 100 MG CAPSULE PO SCH ×2 (10:38→22:55)
[2020-05-29] MEDS: PANTOPRAZOLE 40 MG TABLET PO SCH (10:38)
[2020-05-29] MEDS: LOSARTAN POTASSIUM 50 MG TABLET PO SCH (10:39)
[2020-05-29 10:48] LABS: BASO % 0.3 % (0-2.0); EOS % 1.2 % (0-4.5); LYMPH % 25.8 % (8-40); MCH 29.1 pg (25.7-33.7); MCHC 32.6 g/dl (32.0-36.0); MEAN CELL VOLUME 89.4 fl (80-96); MEAN PLT VOLUME 10.8 fl (7.5-11.1); MONO % 5.7 % (3.8-10.2); PLATELET COUNT 266 K/MM3 (134-434); RBC 4.48 M/mm3 (3.60-5.2); WHITE BLOOD COUNT 9.7 K/mm3 (4.0-10.0)
[2020-05-29 11:12] LABS: POTASSIUM 4.1 mmol/L (3.5-5.1)
[2020-05-29 11:14] LABS: CALCIUM 8.7 mg/dL (8.5-10.1)
[2020-05-29 11:15] LABS: ALBUMIN 3.3 g/dl (3.4-5.0); BLOOD UREA NITROGEN 25.4 mg/dL (7-18)
[2020-05-29 11:18] LABS: CREATININE 0.5 mg/dL (0.55-1.3)
[2020-05-29 11:19] LABS: BILIRUBIN,TOTAL 0.4 mg/dL (0.2-1); TOT PROT 7.1 g/dl (6.4-8.2)
[2020-05-30] MEDS: LOSARTAN POTASSIUM 50 MG TABLET PO SCH (09:57)
[2020-05-30] MEDS ORDERED: REGADENOSON 0.4 MG/5 ML PRE-FILLED SYRINGE IVPUSH ONE ×2 (10:50→12:00)
[2020-05-30] MEDS: GABAPENTIN 100 MG CAPSULE PO SCH (13:57)
[2020-05-30] MEDS: PANTOPRAZOLE 40 MG TABLET PO SCH (13:57)
[2020-05-30] MEDS: ASPIRIN 81 MG CHEWABLE TABLETS PO SCH (13:57)
[2020-05-30 15:32] VITALS: BP 129/78; PULSE 65; TEMP 98
[2020-05-30] MEDS ORDERED: FLU VACCINE (FLULAVAL) PF 60 MCG/0.5 ML SYRINGE 2020-2021 IM ONE (16:00)
== END 2020-05-30 19:06 | disposition home or self-care (01) | DRG 313 ==
LOC: JER 08:28 → OBSVTOIN 13:00 → JERBED 13:00 → J4W 05-28 19:05
PROVIDERS: ADMIT Internal Medicine; ATTEND Internal Medicine
DX: R07.89 Other chest pain (principal); I10 Essential (primary) hypertension; E66.9 Obesity, unspecified; Z68.38 Body mass index [BMI] 38.0-38.9, adult; R82.71 Bacteriuria
CPT/HCPCS: 36415; 71045-TC-FY; 78452-TC; 80053; 80061; 81003; 82550; 82553; 83036; 83690; 83721; 83880; 84443; 84484; 85025; 85610; 85730; 87086; 87186; 93005; 93010; 93017; 93306-TC; 99285-25; A9502; C9803; G0008; J2785; Q2036; U0003

== ENCOUNTER 2020-12-05 18:36 | Emergency (ER) | payer OTHER ==
[2020-12-05 18:52] VITALS: BP 118/71; PULSE 71; TEMP 97.8; BMI 38.1
[2020-12-05] MEDS ORDERED: KETOROLAC TROMETHAMINE 30 MG/1 ML VIAL IM ONE (19:13)
[2020-12-05] MEDS ORDERED: KETOROLAC TROMETHAMINE 30 MG/1 ML VIAL ONE (19:21)
== END 2020-12-05 21:04 | disposition home or self-care (01) ==
LOC: JERFT 18:36
PROC: 3E0233Z Introduction of Anti-inflammatory into Muscle, Percutaneous Approach (ICD-10-PCS; principal; 2020-12-05)
DX: M54.5 Low back pain (principal)
CPT/HCPCS: 99284-25

== ENCOUNTER 2020-12-11 18:31 | Emergency (ER) | payer OTHER ==
[2020-12-11 18:38] VITALS: BP 157/92; PULSE 80; TEMP 98.7; BMI 38.1
[2020-12-11] MEDS ORDERED: LIDOCAINE 5% TOPICAL PATCH TP ONE (19:01)
[2020-12-11] MEDS ORDERED: LIDOCAINE 5% TOPICAL PATCH ONE (19:02)
[2020-12-11 20:38] LABS: EPI CELLS 18 /uL (0-25.1); HYALINE CASTS 8 /uL (0-3.1); PH,URINE 5.5 (5.0-8.0); URINE APPEARANCE CLEAR; URINE BACTERIA >9,000 /uL (0-1359); URINE BILIRUBIN NEGATIVE (NEGATIVE); URINE COLOR YELLOW; URINE GLUCOSE (UA) NEGATIVE (NEGATIVE); URINE KETONE NEGATIVE (NEGATIVE); URINE LEUK ESTERASE 1+ (NEGATIVE); URINE NITRITE POSITIVE (NEGATIVE); URINE PROTEIN NEGATIVE (NEGATIVE); URINE RBC 94 /uL (0-23.9); URINE WBC 231 /uL (0-25.8)
[2020-12-11] MEDS ORDERED: CEPHALEXIN MONOHYDRATE 500 MG CAPSULE (UD) PO ONE (20:42)
[2020-12-11] MEDS ORDERED: CEPHALEXIN MONOHYDRATE 500 MG CAPSULE (UD) ONE (20:46)
[2020-12-11] MEDS ORDERED: LIDOCAINE PATCH REMOVAL MC SCH (22:00)
== END 2020-12-11 21:00 | disposition home or self-care (01) ==
LOC: JERFT 18:31 → MERGE 18:31 → JERFT 21:00
DX: N30.00 Acute cystitis without hematuria (principal); M54.5 Low back pain
CPT/HCPCS: 72100-TC-FY; 81003; 87086; 87186; 99284-25

== ENCOUNTER 2022-05-14 14:22 | Emergency (ER) | payer OTHER ==
[2022-05-14 14:33] VITALS: BP 117/79; PULSE 80; RESP 16; BMI 37.2
== END 2022-05-14 15:07 | disposition home or self-care (01) ==
LOC: JER 14:22
DX: U07.1 COVID-19 (principal)
CPT/HCPCS: 0241U-QW; 99283-25

== ENCOUNTER 2023-08-22 06:38 | Emergency (ER) | payer OTHER ==
[2023-08-22 06:51] VITALS: BP 130/70; PULSE 80; RESP 18; TEMP 98.9; BMI 38.3
[2023-08-22] MEDS ORDERED: ACETAMINOPHEN INJECTION 100 ML IVPB ONE (07:45)
[2023-08-22] MEDS ORDERED: LIDOCAINE 4% PATCH TP ONE (07:46)
[2023-08-22] MEDS: BENZONATATE 200 MG CAPSULE PO ONE (08:24)
[2023-08-22] MEDS: ACETAMINOPHEN 1000 MG/100 ML BAG IVPB ONE (08:24)
[2023-08-22] MEDS: LIDOCAINE 4% PATCH TP ONE (08:24)
[2023-08-22 08:34] LABS: BASO % 0.4 % (0-2.0); EOS % 0.5 % (0-4.5); HEMOGLOBIN 13.1 GM/dL (10.7-15.3); LYMPH % 14.1 % (8-40); MCH 29.6 pg (25.7-33.7); MCHC 33.5 g/dl (32.0-36.0); MEAN CELL VOLUME 88.3 fl (80-96); MEAN PLT VOLUME 9.6 fl (7.5-11.1); MONO % 6.7 % (3.8-10.2); NEUT % 78.3 % (42.8-82.8); PLATELET COUNT 238 10^3/uL (134-434); RBC 4.41 M/mm3 (3.60-5.2); RDW 13.5 % (11.6-15.6); WHITE BLOOD COUNT 8.6 K/mm3 (4.0-10.0)
[2023-08-22 08:36] LABS: INR 1.12 (0.83-1.09)
[2023-08-22 08:39] LABS: ACTIVATED PTT 31.3 SECONDS (25.2-36.5)
[2023-08-22 08:43] LABS: POTASSIUM 3.9 mmol/L (3.5-5.1)
[2023-08-22 08:45] LABS: ALBUMIN 3.4 g/dl (3.4-5.0); CALCIUM 8.4 mg/dL (8.5-10.1)
[2023-08-22 08:46] LABS: BLOOD UREA NITROGEN 15.6 mg/dL (7-18)
[2023-08-22 08:48] LABS: CREATININE 0.6 mg/dL (0.55-1.3)
[2023-08-22 08:50] LABS: BILIRUBIN,TOTAL 0.8 mg/dL (0.2-1); TOT PROT 6.8 g/dl (6.4-8.2)
[2023-08-22 08:54] LABS: N-TERMINAL BNP 322.6 pg/ml (5-125)
== END 2023-08-22 12:17 | disposition home or self-care (01) ==
LOC: JER 06:38
PROC: 3E033NZ Introduction of Analgesics, Hypnotics, Sedatives into Peripheral Vein, Percutaneous Approach (ICD-10-PCS; principal; 2023-08-22)
DX: J10.1 Influenza due to other identified influenza virus with other respiratory manifestations (principal); R05.9 Cough, unspecified; R07.9 Chest pain, unspecified; M54.50 Low back pain, unspecified; R50.9 Fever, unspecified; Z20.822 Contact with and (suspected) exposure to COVID-19
CPT/HCPCS: 0241U-QW; 36415; 71046-TC-FY; 80053; 83735; 83880; 84484; 85025; 85610; 85730; 93005; 93010; 93971-TC; 96374; 99285-25; J0131

== ENCOUNTER 2024-06-02 11:13 | Emergency (ER) | payer OTHER ==
[2024-06-02 11:22] VITALS: BMI 36.6
[2024-06-02] MEDS ORDERED: LIDOCAINE 4% PATCH TP ONE (13:31)
[2024-06-02] MEDS ORDERED: METHOCARBAMOL 500 MG TABLET ONE (13:32)
[2024-06-02] MEDS ORDERED: ACETAMINOPHEN 500 MG TABLET (FP) ONE (13:32)
[2024-06-02] MEDS ORDERED: LIDOCAINE 5% TOPICAL PATCH ONE (13:33)
[2024-06-02] MEDS: METHOCARBAMOL 500 MG TABLET PO ONE (13:36)
[2024-06-02] MEDS: LIDOCAINE 5% TOPICAL PATCH TP ONE (13:36)
[2024-06-02] MEDS: ACETAMINOPHEN 500 MG TABLET (FP) PO ONE (13:36)
[2024-06-02 15:13] VITALS: BP 102/56; PULSE 51; RESP 15; TEMP 97.4
[2024-06-02] MEDS ORDERED: LIDOCAINE PATCH REMOVAL MC SCH (22:00)
== END 2024-06-02 15:44 | disposition home or self-care (01) ==
LOC: JERFT 11:13
DX: M54.6 Pain in thoracic spine (principal); G89.29 Other chronic pain; M62.830 Muscle spasm of back
CPT/HCPCS: 72070-TC-FY; 99283-25

== ENCOUNTER 2024-06-22 03:56 | Day surgery (SDC) | payer OTHER ==
[2024-06-21 15:02] VITALS: BMI 37.0
[2024-06-22] MEDS ORDERED: ACETAMINOPHEN 500 MG TABLET (FP) PO PRN ×2 (09:53→09:55)
[2024-06-22] MEDS: LIDOCAINE HCL 1% PRESERVATIVE FREE - 30ML VIAL IJ ONE (15:16)
[2024-06-22] MEDS: IOHEXOL 180 MG/1 ML ML IJ ONE (15:17)
[2024-06-22] MEDS: BUPIVACAINE HCL/PF 0.5% (5MG/ML) 10 ML VIAL IJ ONE (15:18)
[2024-06-22] MEDS: TRIAMCINOLONE ACET 40MG/1ML VIAL IJ ONE (15:19)
[2024-06-22 15:51] VITALS: BP 110/59; PULSE 57; RESP 16; TEMP 97.6
== END 2024-06-22 16:20 | disposition home or self-care (01) ==
LOC: JASU-SURG 03:56
PROVIDERS: ATTEND Pain Medicine Pain Medicine
PROC: 3E0U3BZ Introduction of Anesthetic Agent into Joints, Percutaneous Approach (ICD-10-PCS; 2024-06-22)
PROC: 3E0U33Z Introduction of Anti-inflammatory into Joints, Percutaneous Approach (ICD-10-PCS; principal; 2024-06-22 15:45)
DX: M53.3 Sacrococcygeal disorders, not elsewhere classified (principal)
CPT/HCPCS: 76000-TC-FY

== ENCOUNTER 2024-06-28 09:38 | Emergency (ER) | payer OTHER ==
[2024-06-28 09:44] VITALS: BP 128/77; PULSE 74; RESP 18; TEMP 98.5; BMI 37.0
[2024-06-28] MEDS ORDERED: ACETAMINOPHEN 1000 MG/100 ML BAG IVPB ONE (10:20)
[2024-06-28 10:40] LABS: BASO % 0.5 % (0-2.0); EOS % 1.2 % (0-4.5); HEMATOCRIT 40.2 % (32.4-45.2); HEMOGLOBIN 13.1 GM/dL (10.7-15.3); MCH 28.9 pg (25.7-33.7); MCHC 32.6 g/dl (32.0-36.0); MEAN CELL VOLUME 88.8 fl (80-96); MEAN PLT VOLUME 9.2 fl (7.5-11.1); MONO % 6.8 % (3.8-10.2); NEUT % 79.5 % (42.8-82.8); PLATELET COUNT 249 10^3/uL (134-434); RBC 4.53 M/mm3 (3.60-5.2); RDW 13.5 % (11.6-15.6); WHITE BLOOD COUNT 14.3 K/mm3 (4.0-10.0)
[2024-06-28] MEDS ORDERED: ACETAMINOPHEN 325 MG TABLET (FP) ONE (10:44)
[2024-06-28] MEDS: ACETAMINOPHEN 325 MG TABLET (FP) PO ONE (10:46)
[2024-06-28 10:57] LABS: POTASSIUM 3.4 mmol/L (3.5-5.1)
[2024-06-28 10:59] LABS: ALBUMIN 3.3 g/dl (3.4-5.0); CALCIUM 8.9 mg/dL (8.5-10.1)
[2024-06-28 11:00] LABS: BLOOD UREA NITROGEN 14.7 mg/dL (7-18); MAGNESIUM 1.9 mg/dL (1.8-2.4)
[2024-06-28 11:03] LABS: CREATININE 0.6 mg/dL (0.55-1.3)
[2024-06-28 11:04] LABS: BILIRUBIN,TOTAL 0.8 mg/dL (0.2-1); TOT PROT 6.6 g/dl (6.4-8.2)
[2024-06-28] MEDS: SODIUM CHLORIDE 0.9% 500 ML INFUS.BAG IV ONE (11:17)
== END 2024-06-28 11:33 | disposition home or self-care (01) ==
LOC: JER 09:38
DX: R05.9 Cough, unspecified (principal); J06.9 Acute upper respiratory infection, unspecified; R53.1 Weakness; R07.89 Other chest pain; R51.9 Headache, unspecified; Z20.822 Contact with and (suspected) exposure to COVID-19
CPT/HCPCS: 0241U-QW; 36415; 71046-TC-FY; 80053; 83735; 85025; 86803; 93005; 93010; 99285-25